=== PATIENT | male | born 1935 | race Caucasian/White ===

== ENCOUNTER → 2016-09-04 | Outpatient (CLI) | payer OTHER | LOC: RT 09:37 → EDBD 09:37 | PROVIDERS: ATTEND Psychiatry & Neurology Neurology | DX: G30.0 Alzheimer's disease with early onset (principal) | CPT/HCPCS: 95819 ==

== ENCOUNTER → 2016-10-24 | Outpatient (CLI) | payer OTHER ==
--- NOTE | 2016-10-24 12:24 | CT ---
STUDY: CT OF THE CERVICAL SPINE HISTORY: Cervical spondylosis. Neck and head pain. Technique: Multiple axial images of the cervical spine were obtained from the skull base to the thora cic inlet without administration of IV contrast. Sagittal and coronal reformats were performed and r eviewed. Automated exposure control (AEC) was utilized to adjust the MA and/or kV. Comparison: None. Findings: There is mild multilevel degenerative disk disease and degenerative endplate change. Vertebral body h eights and alignment are otherwise within normal limits. There is no evidence of acute fracture or drummond bluxation. Facet alignment is within normal limits bilaterally. There is multilevel facet arthropathy . The spinous processes are intact. There is no significant prevertebral soft tissue swelling. The la teral masses of C1, and the C1/C2 relationship are normal. The odontoid process is intact. The occipi alexis condyles and their relationship with C1 are normal. IMPRESSION: 1. No evidence of acute cervical spine fracture or subluxation. 2. Mild multilevel cervical spondylosis. Reported By:
== END | disposition home or self-care (01) | DRG 552 ==
LOC: RAD 11:16
PROVIDERS: ATTEND Psychiatry & Neurology Neurology
DX: M47.812 Spondylosis without myelopathy or radiculopathy, cervical region (principal); M47.892 Other spondylosis, cervical region
CPT/HCPCS: 72125